=== PATIENT | male | born 1990 | race African-American/Black ===

== ENCOUNTER 2017-08-30 23:20 | Emergency (ER) | payer SELFPAY ==
--- NOTE | 2017-08-31 00:12 | EDPHY ---
H & P Stated Complaint: R ankle injury skateboarding HPI/ROS: HPI CHIEF COMPLAINT: Right ankle pain skateboarding injury HISTORY OF PRESENT ILLNESS: This patient is a 27-year-old male otherwise healthy does have significant past medical history for anxiety bipolar disorder , presents emergency room with right lateral ankle pain. Unable to bear weight. States he was skateboarding around 530 in sustained an injury. He states somebody ran into him. He now has right lateral ankle pain and swelling. He is neurovascular intact. No knee pain. No calf pain. Pain is located 6/10 right lateral malleolus. No other injuries. Past Medical History: Bipolar disorder, anxiety Past Surgical History: Denies recent surgery Social History: Denies daily use drugs alcohol tobacco products. Family History: Noncontributory ROS REVIEW OF SYSTEMS: A comprehensive 10 point review of systems is otherwise negative aside from elements mentioned in the history of present illness. Exam Constitutional appears well nontoxic triage nursing summary reviewed, vital signs reviewed, awake/alert. Eyes normal conjunctivae and sclera, EOMI, PERRLA. HENT normal inspection, atraumatic, moist mucus membranes, no epistaxis, neck supple/ no meningismus, no raccoon eyes. Respiratory clear to auscultation bilaterally, normal breath sounds, no respiratory distress, no wheezing. Cardiovascular rate normal, regular rhythm, no murmur, no edema, distal pulses normal. Gastrointestinal soft, non-tender, no rebound, no guarding, normal bowel sounds, no distension, no pulsatile mass. Genitourinary no CVA tenderness. Musculoskeletal no midline vertebral tenderness, full range of motion, no calf swelling, no tenderness of extremities, no meningismus, good pulses, neurovascularly intact. Right lower extremity: This is a neurovascularly intact extremity. Good distal pulse. Good sensation. Good cap refill. Soft compartments. There is noted to be swelling over the right lateral malleolus present. With range of motion of the foot he has pain of the lateral right malleolus. Skin pink, warm, & dry, no rash, skin atraumatic. Neurologic awake, alert and oriented x 3, AAOx3, moves all 4 extremities equally, motor intact, sensory intact, CN II-XII intact, normal cerebellar, normal vision, normal speech. Psychiatric normal mood/affect. Heme/Lymph/Immune no lymphadenopathy. Differential Diagnosis: Includes but is not limited to in a particular order, right ankle sprain, right ankle contusion, soft tissue injury, ligamentous injury, fracture Medical Decision Making: Plan for this patient x-ray right foot and right ankle. Ibuprofen 800 mg for pain control, ice pack. Re-evaluate. At this time is unable to ambulate he may need walking boot and crutches. Re-evaluation: The x-ray of the right ankle and right foot are reviewed by myself. I do not appreciate any significant fracture malalignment. Patient has been placed in crutches. Walking boot. Ice pack anti-inflammatory pain medicine. I do recommend following up with Orthopedics. Most likely has an ankle sprain. Source: Patient - Personal History Current Tetanus/Diphtheria Vaccine: Yes - Medical/Surgical History Hx Asthma: No Hx Chronic Respiratory Disease: No Hx Diabetes: No Hx Cardiac Disease: No Hx Renal Disease: No Hx Cirrhosis: No Hx Alcoholism: No Hx HIV/AIDS: No Hx Splenectomy or Spleen Trauma: No Other PMH: PMHx: denies. PSHx: denies - Social History Smoking Status: Current every day smoker Constitutional: Initial Vital Signs Temperature (C) 37.1 C 08/30/17 23:27 Heart Rate 89 08/30/17 23:27 Respiratory Rate 16 08/30/17 23:27 Blood Pressure 114/81 H 08/30/17 23:27 O2 Sat (%) 97 08/30/17 23:27 O2 Delivery Mode Room Air Allergies/Adverse Reactions: No Known Allergies Allergy (Unverified 08/30/17 23:27) Home Medications: Medication Instructions Recorded Ibuprofen [Motrin (*)] 800 mg PO Q6-8PRN #10 tab 08/31/17 Medical Decision Making - Data Points Medications Given: Discontinued Medications Ibuprofen (Motrin) 800 mg PO EDNOW ONE Stop: 08/31/17 00:15 Last Admin: 08/31/17 00:21 Dose: 800 mg Departure - Departure Disposition: Home, Routine, Self-Care Clinical Impression: Right ankle sprain Qualifiers: Encounter type: initial encounter Involved ligament of ankle: other ligament Qualified Code(s): S93.491A - Sprain of other ligament of right ankle, initial encounter Condition: Good Instructions: Ankle Sprain (ED) Additional Instructions: 1. Ice your ankle. 2. Anti-inflammatory pain medicine for pain control. 3. Crutches to help ambulate. 4. Walking boot for support. 5. Follow up with Orthopedics. 6. Return to the ER for worsening symptoms questions or concerns. Referrals: NONE *PRIMARY CARE P,. [Primary Care Provider] - As per Instructions Arcenio Bower MD [Medical Doctor] - As per Instructions Prescriptions: Ibuprofen [Motrin (*)] 800 mg PO Q6-8PRN #10 tab
[2017-08-31] MEDS ORDERED: IBUPROFEN 200 MG TAB PO ONE (00:14)
[2017-08-31 01:11] VITALS: BP 118/66; PULSE 79; RESP 18; TEMP 98.6; O2SAT 95
== END 2017-08-31 01:10 | disposition home or self-care (01) ==
DX: S93.491A Sprain of other ligament of right ankle, initial encounter (principal); F17.200 Nicotine dependence, unspecified, uncomplicated; V00.138A Other skateboard accident, initial encounter; Y99.8 Other external cause status; Y93.51 Activity, roller skating (inline) and skateboarding
CPT/HCPCS: L4386